=== PATIENT | male | born 1980 | race Caucasian/White ===

== ENCOUNTER 2018-06-01 15:49 | Emergency (ER) | payer SELFPAY ==
[2018-06-01 16:07] VITALS: BP 139/82; PULSE 80; RESP 20; TEMP 36.3; O2SAT 96; BMI 23.6
--- NOTE | 2018-06-01 16:12 | DI.RAD.S_ITS ---
PROCEDURE: XR ANKLE RT MIN 3V INDICATIONS: pain, gave out causing fall TECHNIQUE: 3 views of the ankle were acquired. COMPARISON: [facility], CR, TIBIA/FIBULA 2VW (RT), 04/09/2014, 19:10. [facility], CR, ANKLE 3 VIEWS RIGHT, 09/09/2013, 9:54. Outside Facility, RG, XR TIB/FIB 2V RIGHT, 07/10/2013, 20:13. Outside Facility, RG, XR ANKLE 3V RIGHT, 07/10/2013, 18:25. [facility], CR, XR TIBIA FIBULA RT 2V, 06/01/2018, 17:44. FINDINGS: Bones: ORIF of previous fibular and tibial fractures. Hardware is intact without evidence of fracture lucency. No acute osseous fracture is present. Soft tissues: No tibiotalar joint effusion. Achilles tendon appears normal. IMPRESSION: No visualized acute fracture or dislocation. However, if clinical concern and/or pain persist, short interval imaging followup in 7-10 days is recommended, as occult injury cannot be definitively excluded. Dictated by: Laura Sanchez M.D. on 06/01/2018 at 18:21 Approved by: Laura Sanchez M.D. on 06/01/2018 at 18:22
--- NOTE | 2018-06-01 16:36 | DI.CT.S_ITS ---
PROCEDURE: CT FACIAL BONES WO CON INDICATIONS: head trauma, intoxicated. TECHNIQUE: Noncontrast 2.5 mm thick axial images acquired from the mandible through the frontal sinuses, with coronal and sagittal reformatting. For radiation dose reduction, the following was used: automated exposure control, adjustment of mA and/or kV according to patient size. COMPARISON: None. FINDINGS: Image quality: Excellent. Bones and teeth: Orbital prado are intact. Sinus prado show no fracture or deformity. Nasal bones demonstrate comminuted distal fracture. Visualized portions of the mandible demonstrate no fractures or subluxation. Zygomatic arches are intact. Pterygoid plates are intact. Visualized portions of the skull base and auditory canals are intact. Sinuses: Paranasal sinuses are aerated, without fluid levels, mucosal thickening, or mucoceles. Mastoid air cells are aerated. Soft tissues: Mild soft tissue edema is present overlying the nasal bones. No enlarged lymph nodes. No soft tissue lacerations or debris. Vascular: Visualized vascular structures appear normal in the absence of contrast. Bony vascular foramina and canals are intact. IMPRESSION: 1. Comminuted nasal bone fracture with overlying soft tissue edema. Dictated by: Laura Sanchez M.D. on 06/01/2018 at 19:25 Approved by: Laura Sanchez M.D. on 06/01/2018 at 19:27
--- NOTE | 2018-06-01 16:43 | PC.NURSE ---
saw pt in triage room
--- NOTE | 2018-06-01 17:04 | PC.NURSE ---
States now has double vision. aware. States to order head ct
--- NOTE | 2018-06-01 17:05 | DI.CT.S_ITS ---
PROCEDURE: CT HEAD/BRAIN WO CON INDICATIONS: resolved r arm and leg weakness TECHNIQUE: Noncontrast 4.5 mm thick angled axial sections acquired from the foramen magnum to the vertex, with coronal and sagittal reformats. For radiation dose reduction, the following was used: automated exposure control, adjustment of mA and/or kV according to patient size. COMPARISON: None. FINDINGS: Image quality: Excellent. CSF spaces: Basal cisterns are patent. No extra-axial fluid collections. Ventricles are normal in size and shape. Brain: No midline shift. No intracranial masses or hemorrhage. Murillo-white matter interface is normal. Skull and face: Calvarium and visualized facial bones are intact, without suspicious lesions. Sinuses: Visualized sinuses and mastoids are clear. IMPRESSION: 1. No acute intracranial process. Dictated by: Laura Sanchez M.D. on 06/01/2018 at 18:17 Approved by: Laura Sanchez M.D. on 06/01/2018 at 18:18
--- NOTE | 2018-06-01 17:24 | DI.RAD.S_ITS ---
PROCEDURE: XR TIBIA FUBULA RT 2V INDICATIONS: trauma w/ pain TECHNIQUE: 2 views of the tibia and fibula were acquired. COMPARISON: [facility], CR, TIBIA/FIBULA 2VW (RT), 04/09/2014, 19:10. [facility], CR, ANKLE 3 VIEWS RIGHT, 09/09/2013, 9:54. Outside Facility, RG, XR TIB/FIB 2V RIGHT, 07/10/2013, 20:13. Outside Facility, RG, XR ANKLE 3V RIGHT, 07/10/2013, 18:25. [facility], CR, XR ANKLE RT MIN 3V, 06/01/2018, 17:44. FINDINGS: Bones: ORIF of previous tibial and fibular fractures. Hardware is intact. No evidence of loosening. No visualized osseous fracture. Soft tissues: No suspicious soft tissue calcifications or masses. IMPRESSION: No visualized acute fracture or dislocation. However, if clinical concern and/or pain persist, short interval imaging followup in 7-10 days is recommended, as occult injury cannot be definitively excluded. Dictated by: Laura Sanchez M.D. on 06/01/2018 at 18:20 Approved by: Laura Sanchez M.D. on 06/01/2018 at 18:21
--- NOTE | 2018-06-01 17:39 | ED.HEATRA ---
HPI - Head Injury General Chief complaint: Head Injury Stated complaint: FELL RT LEG INJURY AND FACE Time Seen by Provider: 06/01/18 16:37 History of Present Illness HPI Narrative: HPI 37-year-old male with history of a right lower extremity fracture presents complaining of mid to distal right tibial pain as well as pain on the bridge of his nose after he slipped and fell while attempting to jump into a hot tub drinking alcohol and using marijuana. Denies a history of coagulopathies, anticoagulant usage, antiplatelet medications, headache, LOC, changes in vision or hearing. Denies further injuries. M/S/F/SocHx notable for: please see HPI; remainder reviewed with patient and in chart. ROS: Negative constitutional, eye, cardiovascular, pulmonary, GI, , MSK, skin, neurologic, psychiatric, endocrine unless noted in the HPI. Exam General: pleasant, mildly uncomfortable appearing, nontoxic appearance. HENT: slight leftward deviation of the mid to distal bridge of the nose with superficial abrasion over the mid bridge of the nose, no evidence of facial or head trauma, TTP of orbits, TTP of midface, malocclusion, or septal hematoma. OP clear and moist, dentition intact. Eyes: EOMI, PERRL (4->2mm bilaterally). Neck: Tracheal midline. No visible skin defects, no step-offs, no c-spine TTP, no stridor, or JVD. Cardiac: Regular rate and rhythm. Chest: No crepitus, visual evidence of trauma, no tenderness to palpation. Equal chest rise. Pulm: Clear to auscultation bilaterally, normal work of breathing without accessory muscle usage. Abd: Soft, nontender to palpation, nondistended, no guarding or visual evidence of trauma. Back: No spinous process tenderness to palpation, no step-offs or visible injuries. Pelvis: Stable, no tenderness to palpation or instability. RUE: no visible injuries. Insurance Billing Clerk 5/5, radial pulse 2+, sensation intact at hand. Shoulder, elbow, wrist, and fingers with full functional range of motion. Muscle compartments of the upper arm, forearm, and hand are soft and without marked tenderness to palpation. LUE: No visible injuries. Insurance Billing Clerk 5/5, radial pulse 2+, sensation intact at hand. Shoulder, elbow, wrist, and fingers with full functional range of motion. Muscle compartments of the upper arm, forearm, and hand are soft and without marked tenderness to palpation. RLE: No visible injuries. Dorsiflexion 5/5, distal pulse 2+, sensation intact at foot. Hip, knee, ankle, and toes with full functional range of motion. Muscle compartments of the thigh, calf, and foot are soft and without marked tenderness to palpation. notable tenderness palpation in the mid to distal right tibia. LLE: No visible injuries. Dorsiflexion 5/5, distal pulse 2+, sensation grossly intact. Hip, knee, ankle, and toes with full functional range of motion. Muscle compartments of the thigh, calf, and foot are soft and without marked tenderness to palpation. Neuro: AOx3, CN VII intact Skin: Warm and dry (focal injuries noted above). Psych: Normal affect and judgment. Labs / Imaging (pertinent): CT Head: pending CT maxillofaciall: pending XR R Tib/Fib: pending XR R Ankle: pending MDM Previous chart, nursing note, and vitals reviewed. A: 37-year-old male with history of a right lower extremity fracture presents complaining of mid to distal right tibial pain as well as pain on the bridge of his nose after he slipped and fell while attempting to jump into a hot tub drinking alcohol and using marijuana. Imaging pending at time of patient care transfer to Dr. Ritchie, the oncoming overnight provider. Impression: fall (please reference below for remainder of encounter information) Related Data Allergies Allergy/AdvReac Type Severity Reaction Status Date / Time No Known Drug Allergies Allergy Verified 06/01/18 16:12 [facility] Social History Smoking Status: Current every day smoker Exam Initial Vital Signs Initial Vital Signs: Vital Signs Temperature 97.3 F L 06/01/18 16:07 Pulse Rate 80 06/01/18 16:07 Respiratory Rate 20 06/01/18 16:07 Blood Pressure 139/82 H 06/01/18 16:07 Pulse Oximetry 96 06/01/18 16:07 Course Orders Ordered: ED Orders 06/01/18 16:12 XR ankle RT min 3V Stat 06/01/18 16:36 CT facial bones wo con Stat 06/01/18 17:05 CT head/brain wo con Stat 06/01/18 17:24 XR tibia fibula RT 2V Stat Vital Signs - 8 hr 06/01/18 16:07 Temperature 97.3 F L Pulse Rate 80 Respiratory Rate 20 Blood Pressure 139/82 H Pulse Oximetry 96
[2018-06-01] MEDS: ACETAMINOPHEN 325 MG TABLET 650 MG PO (19:26)
[2018-06-01 19:35] VITALS: BP 122/87; PULSE 69; RESP 18; O2SAT 97
[2018-06-01] MEDS: HYDROCODONE/ACET 5/325 PREPACK 1 BOTTLE MISC (19:51)
== END 2018-06-01 19:56 | disposition home or self-care (01) ==
PROVIDERS: Emergency Provider Emergency Medicine
DX: S02.2XXA Fracture of nasal bones, initial encounter for closed fracture (principal); W16.032A Fall into swimming pool striking wall causing other injury, initial encounter
CPT/HCPCS: 70450; 70486; 73590; 73610; 99283; 99284

== ENCOUNTER 2018-07-31 16:08 | Emergency (ER) | payer SELFPAY ==
[2018-07-31 16:11] VITALS: BP 138/74; PULSE 72; RESP 16; TEMP 36.6; O2SAT 98
--- NOTE | 2018-07-31 19:27 | ED_ITS ---
HPI - Headache General Chief Complaint: Headache Stated Complaint: HEADACHE, VISUAL CHANGES Time Seen by Provider: 07/31/18 18:17 Source: patient Mode of arrival: ambulatory Limitations: no limitations History of Present Illness HPI Narrative: 37-year-old male here for evaluation of left-sided frontal headache. He was seen here in the emergency department several days ago after hitting his head. He states that since then he has had occasional left-sided frontal headaches. states that they are not constant. States he does get changes in his left eye when the pain gets worse. 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 No balance issues. No numbness tingling arms and legs. States that this is the same headache today that he has had for several days. Related Data Allergies Allergy/AdvReac Type Severity Reaction Status Date / Time No Known Drug Allergies Allergy Verified 06/01/18 16:12 Review of Systems Constitutional Denies fatigue, Denies fever(s), Reports headache(s), Denies lethargy and Denies malaise Eyes Reports blurry vision and Denies diplopia ENT Ears, Nose, Mouth, and Throat: Denies dental pain, Denies vertigo, Denies dizziness, Denies dry mouth and Reports headache(s) Cardiovascular Denies chest pain and Denies dyspnea Respiratory Denies dyspnea Gastrointestinal Gastrointestinal: Denies nausea and Denies vomiting Integumentary/Breasts Denies rash Neurologic Denies vertigo, Denies dizziness and Reports headache(s) Endocrine Denies fatigue PFSH Medical History Healthy adult (Acute) Surgical History No pertinent past surgical history (Acute) Social History Smoking Status: Current every day smoker Exam Initial Vital Signs Initial Vital Signs: Vital Signs Temperature 97.8 F 07/31/18 16:11 Pulse Rate 72 07/31/18 16:11 Respiratory Rate 16 07/31/18 16:11 Blood Pressure 138/74 07/31/18 16:11 Pulse Oximetry 98 07/31/18 16:11 Const General: cooperative, healthy appearing, comfortable, well developed, well groomed and No acute distress Orientation: alert, awake and oriented x3 HENMT Head: normal to inspection, normocephalic and atraumatic Face and sinus: face symmetric and other (Tenderness to palpation over the frontal and maxillary sinuses) Skin Lesions: no lesions Rashes: no rashes Neuro General: alert, awake and oriented x3 Cognition: normal cognition Speech: speech normal Gait: normal gait Motor: muscle tone normal throughout Sensory Exam: no sensory deficits noted Psych Appearance: grossly normal and well kempt Course Orders Ordered: Discontinued Medications Ibuprofen (Advil) 800 mg PO NOW ONE Stop: 07/31/18 19:33 Last Admin: 07/31/18 19:33 Dose: 800 mg Vital Signs - 8 hr 07/31/18 19:41 07/31/18 19:42 Temperature 97.8 F Pulse Rate 72 67 Respiratory Rate 16 15 Blood Pressure 138/74 121/74 Pulse Oximetry 98 97 MDM - Headache MDM Narrative Medical decision making narrative: Just prior to my arrival the patient came mouth stating that the pain that he had earlier today has improved. He has a normal neurologic exam. He states he just wants some Motrin would like to go home. On my exam he has a tenderness to palpation over the left-sided frontal and maxillary sinuses. He states the pain has been off and on. He did start a new job where he could be exposed to some new allergens. He is not taking any antihistamines. Offered him to stay and receive IV medications for his headache however the patient declined. He did give Motrin here in the ER. We did discuss the use of decongestants. He was given return precautions. He expressed understanding and agreement with plan. Discharge Plan Departure Patient Disposition: Home Clinical Impression: Headache Discharge Date/Time: 07/31/18 19:43 Interventions: ED Discharge Assessment Last Done: 07/31/18 19:42 Instructions: DI for Sinus Headache Activity Restrictions/Additional Instructions: recommend that you start taking a decongestant such as Claritin /Celia / Zyrtec. You can buy these [id number]. You can by the generic version of these medications. Also recommend that you start a nasal spray such as Flonase or Nasonex. You can also by the generic version of these medicines. Return to the emergency department for any new or worsening symptoms.
[2018-07-31] MEDS: IBUPROFEN 400 MG TABLET 800 MG PO (19:33)
[2018-07-31 19:41] VITALS: BP 138/74; PULSE 72; RESP 16; TEMP 36.6; O2SAT 98
[2018-07-31 19:42] VITALS: BP 121/74; PULSE 67; RESP 15; O2SAT 97
== END 2018-07-31 19:43 | disposition home or self-care (01) ==
PROVIDERS: Emergency Provider Emergency Medicine
DX: R51 Headache (principal)
CPT/HCPCS: 99282; 99283

== ENCOUNTER 2018-08-01 09:40 | Emergency (ER) | payer SELFPAY ==
[2018-08-01 09:50] VITALS: BP 120/90; PULSE 70; RESP 18; TEMP 37; O2SAT 100
[2018-08-01 10:20] VITALS: BP 120/90; PULSE 70; RESP 18; TEMP 37; O2SAT 100
--- NOTE | 2018-08-01 10:54 | ED.HA ---
HPI - Headache General Chief Complaint: Recheck/Abnormal Lab/Rx Stated Complaint: still in pain from ER last night. Time Seen by Provider: 08/01/18 10:37 Source: patient and old records reviewed Limitations: no limitations History of Present Illness HPI Narrative: This is a 37-year-old male comes to the emergency department with left-sided frontal and maxillary headache. Patient states it has been going on for several days. He states he has not been having any dental pain but is worried about an dental infection. Patient has not had any fevers. He has not had a history of migraines or headaches. It is pretty much on the left side of the maxillary and a little bit of a frontal. He is not having any pain radiating to the ear. He is not really having any pain on the right side or in the right sinus. He has not had any nasal discharge that he has noted. He did have a nasal fracture about 2 months ago which she states has not had any new issues. No bleeding. No nausea or vomiting. No rashes or skin changes. No chest pain or shortness of breath. He tried meloxicam at home and [id number] allergy medicine this morning without improvement. He was here yesterday but felt better after period of time and so he went home and just took some Motrin but then his symptoms came back. He states he had a little bit of blurry vision when it hurts a lot but otherwise no other symptoms. No cold cough or congestion. No rashes or skin changes. Related Data Previous Rx's Medication Instructions Recorded amoxicillin-pot clavulanate 1 tab PO Q12H #14 tab 08/01/18 [Augmentin] hydrocodone-acetaminophen [[place]ringham] 1 tab PO Q6H PRN #7 tab 08/01/18 Allergies Allergy/AdvReac Type Severity Reaction Status Date / Time No Known Drug Allergies Allergy Verified 08/01/18 10:22 Review of Systems Review of Systems All systems reviewed & are unremarkable except as noted in HPI and below Constitutional Denies fever(s), Reports headache(s) and Denies weakness Eyes Reports blurry vision ENT Ears, Nose, Mouth, and Throat: Reports as per HPI, Denies dizziness, Reports facial pain, Reports headache(s), Reports lip swelling, Denies nasal congestion and Denies nose pain Cardiovascular Denies chest pain, Denies irregular heart rhythm, Denies lightheadedness, Denies palpitations, Denies dyspnea, Denies dyspnea on exertion and Denies orthopnea Respiratory Denies cough, Denies dyspnea, Denies dyspnea on exertion and Denies wheezing Gastrointestinal Gastrointestinal: Denies abdominal pain, Denies diarrhea, Denies nausea and Denies vomiting Neurologic Reports as per HPI, Denies dizziness, Reports headache(s), Denies sensory deficit and Denies weakness Endocrine Denies palpitations Allergic/Immunologic Reports lip swelling and Denies wheezing PFSH Medical History Healthy adult (Acute) Surgical History No pertinent past surgical history (Acute) Social History Smoking Status: Current every day smoker Exam Initial Vital Signs Initial Vital Signs: Vital Signs Temperature 98.6 F 08/01/18 09:50 Pulse Rate 70 08/01/18 09:50 Respiratory Rate 18 08/01/18 09:50 Blood Pressure 120/90 08/01/18 09:50 Pulse Oximetry 100 08/01/18 09:50 Const General: cooperative, well developed and in distress (Moderate) Nutritional Appearance: well nourished Orientation: alert, awake, oriented x3 and not confused [facility] Head: normocephalic and atraumatic Ears: external ears normal and TM's normal bilaterally Nose: external nose normal and No nasal discharge Face and sinus: face symmetric, no ecchymosis, no erythema, no edema, no fluctuance, no sinus tenderness, tenderness (Left maxillary and frontal sinus.) and No dry mucous membranes Mouth: oral mucosae normal and moist mucous membranes Teeth and gingiva: caries (No clear signs of dental infection.) Throat: tonsils normal and uvula midline Skin General: no rashes or lesions noted, No jaundice and No petechiae Neuro General: alert, oriented x3, gait normal and no focal motor deficits Cranial Nerves: CN's II-XI intact bilaterally and PERRL Cognition: normal cognition Speech: speech normal Gait: normal gait Course Vital Signs - 8 hr 08/01/18 09:50 08/01/18 10:20 Temperature 98.6 F 98.6 F Pulse Rate 70 70 Respiratory Rate 18 18 Blood Pressure 120/90 Blood Pressure [Left Arm] 120/90 Pulse Oximetry 100 100 Discharge Plan Departure Patient Disposition: Home Clinical Impression: Headache, Sinusitis Discharge Date/Time: 08/01/18 12:28 Interventions: ED Discharge Assessment Last Done: 09/20/18 12:28 Instructions: DI for Headache Activity Restrictions/Additional Instructions: Follow-up in the next 3-5 days if your symptoms are not resolving. Return to the emergency department for fevers greater than 100.4F, mental status changes, facial swelling, facial redness or swelling of the inside of yourr mouth. Also return if you're having increasing headaches, new vision changes or persistent vomiting. Take antibiotics until they are completely gone. You may continue to take meloxicam as needed. Follow directions on the bottle. Take narcotic pain medication as needed, this medication can make you sleepy do not drive, perform hazards activities or make any major decisions while taking them. Prescriptions: New hydrocodone-acetaminophen [[place]ringham] 5-325 mg tablet 1 tab PO Q6H PRN (Reason: pain) Qty: 7 RF: 0 amoxicillin-pot clavulanate [Augmentin] 875-125 mg tablet 1 tab PO Q12H Qty: 14 RF: 0
[2018-08-01 11:17] VITALS: BP 108/71; PULSE 75; RESP 16; O2SAT 100
[2018-08-01 12:26] VITALS: BP 124/73; PULSE 79; O2SAT 99
== END 2018-08-01 12:28 | disposition home or self-care (01) ==
PROVIDERS: Emergency Provider Emergency Medicine
DX: J32.9 Chronic sinusitis, unspecified (principal); R51 Headache
CPT/HCPCS: 99282; 99283